=== PATIENT | female | born 1970 | race Hispanic/Latino ===

== ENCOUNTER 2016-11-08 04:16 | Emergency (ER) | payer OTHER ==
[2016-11-08 04:38] VITALS: BMI 25.8
[2016-11-08 04:50] VITALS: TEMP 98
--- NOTE | 2016-11-08 04:56 | ED PDOC ---
Arrival/HPI - General Chief Complaint: Alcohol Ingestion Time Seen by Provider: 11/08/16 04:18 Historian: Patient, EMS, Police EM Caveat: Intoxicated - History of Present Illness Narrative History of Present Illness (Text): 11/08/16 04:52 46 year old female presents to the emergency department by BLS with [place] [employer] for ETOH intoxication. Patient was found sitting in the middle of the road. Patient was brought in screaming violently and being uncooperative. HPI and ROS limited due to patient being intoxicated and uncooperative. Time/Duration: Other Symptom Onset: Gradual Symptom Course: Unchanged Activities at Onset: Light Context: Street Past Medical History - Provider Review Nursing Documentation Reviewed: Yes - Infectious Disease Hx of Infectious Diseases: None - Psychiatric Hx Substance Use: No Family/Social History - Physician Review Nursing Documentation Reviewed: Yes Family/Social History: No Known Family HX Smoking Status: Unknown If Ever Smoked Hx Alcohol Use: Yes Hx Substance Use: No Allergies/Home Meds Allergies/Adverse Reactions: Allergies Unobtainable Allergy (Verified 11/08/16 04:38) Home Medications: Home Meds Medication Instructions Recorded Confirmed Unobtainable 11/08/16 11/08/16 Review of Systems - Physician Review All systems were reviewed & negative as marked: Yes - Review of Systems Systems not reviewed;Unavailable: Intoxicated Physical Exam Vital Signs Reviewed: Yes Vital Signs Temp Pulse Resp BP Pulse Ox 11/08/16 13:35 71 H 106/60 98 11/08/16 11:39 70 16 102/56 L 99 11/08/16 09:36 72 16 95/55 L 99 11/08/16 07:00 80 16 102/52 L 100 11/08/16 04:41 98.0 F 80 16 108/58 L 97 Temperature: Afebrile Blood Pressure: Normal Pulse: Regular Respiratory Rate: Normal Appearance: Positive for: Well-Appearing, Non-Toxic, Comfortable Pain Distress: None - Systems Exam Head: Present: Atraumatic, Normocephalic Pupils: Present: PERRL Extroacular Muscles: Present: EOMI Conjunctiva: Present: Normal Mouth: Present: Moist Mucous Membranes Neck: Present: Normal Range of Motion Respiratory/Chest: Present: Clear to Auscultation, Good Air Exchange. No: Respiratory Distress, Accessory Muscle Use Cardiovascular: Present: Regular Rate and Rhythm, Normal S1, S2. No: Murmurs Abdomen: Present: Normal Bowel Sounds. No: Tenderness, Distention, Peritoneal Signs Back: Present: Normal Inspection Upper Extremity: Present: Normal Inspection. No: Cyanosis, Edema Lower Extremity: Present: Normal Inspection. No: Edema Neurological: Present: GCS=15, CN II-XII Intact, Speech Normal Skin: Present: Warm, Dry, Normal Color. No: Rashes Psychiatric: Present: Alert, Oriented x 3, Normal Insight, Normal Concentration Medical Decision Making ED Course and Treatment: 11/08/16 04:52 Impression: 46 year old female present for ETOH intoxication. Plan: -- Head CT -- Labs -- Ativan -- Haldol -- Urinalysis -- HCG Qualitative Urine -- Reassess and disposition Progress Notes: - Lab Interpretations Lab Results: 11/08/16 05:13 11/08/16 05:13 Lab Results 11/08/16 06:45: Alcohol, Quantitative 242 H 11/08/16 05:13: Sodium 139, Potassium 3.8, Chloride 106, Carbon Dioxide 19 L, Anion Gap 18, BUN 12, Creatinine 0.6, Est GFR ( Amer) > 60, Est GFR (Non- Af Amer) > 60, Random Glucose 79, Calcium 7.8 L, Total Bilirubin 0.6, AST 34, ALT 7, Alkaline Phosphatase 43, Total Protein 6.7, Albumin 4.1, Globulin 2.6, Albumin/Globulin Ratio 1.6, Lipase 1036 H 11/08/16 05:13: Urine Color Yellow, Urine Appearance Clear, Urine pH 6.0, Ur Specific [place] <= 1.005, Urine Protein Negative, Urine Glucose (UA) Negative, Urine Ketones Negative, Urine Blood Negative, Urine Nitrate Negative, Urine Bilirubin Negative, Urine Urobilinogen 0.2, Ur Leukocyte Esterase Negative, Urine HCG, Qual Negative 11/08/16 05:13: WBC 8.4, RBC 4.11, Hgb 12.3, Hct 36.4, MCV 88.6, MCH 29.9, MCHC 33.8, RDW 13.7, Plt Count 223, MPV 9.9, Gran % 56.5, Lymph % (Auto) 33.2, Bailey % (Auto) 8.6 H, Eos % (Auto) 1.1 L, Baso % (Auto) 0.6, Gran # 4.77, Lymph # 2.8 , Bailey # 0.7 H, Eos # 0.1, Baso # 0.05 I have reviewed the lab results: Yes - RAD Interpretation Radiology Orders: 11/08/16 04:44 HEAD W/O CONTRAST [CT] Stat - Medication Orders Current Medication Orders: Discontinued Medications Haloperidol Lactate (Haldol) 5 mg IM STAT STA PRN Reason: Protocol Stop: 11/08/16 04:43 Last Admin: 11/08/16 04:42 Dose: 5 mg IM Administration Charges Document 11/08/16 04:42 SC ([facility]08[facility]16 [id number] Injection Site MAR Injection Site Right Deltoid Charges for Administration # of IM Administrations 1 Lorazepam (Ativan) 2 mg IM ONCE ONE PRN Reason: Protocol Stop: 11/08/16 04:43 Last Admin: 11/08/16 04:42 Dose: 2 mg IM Administration Charges Document 11/08/16 04:42 SC (Rec: 11/08/16 04:54 [id number] Injection Site MAR Injection Site Right Deltoid Charges for Administration # of IM Administrations 1 Ondansetron HCl (Zofran Inj) 4 mg IVP STAT STA Stop: 11/08/16 04:42 Last Admin: 11/08/16 04:42 Dose: 4 mg IVP Administration Document 11/08/16 04:42 SC (Rec: 11/08/16 04:54 [id number] Charges for Administration # of IVP Administrations 1 - Scribe Statement The provider has reviewed the documentation as recorded by the Scribe Garrett Cuellar All medical record entries made by the Scriblonnie were at my direction and personally dictated by me. I have reviewed the chart and agree that the record accurately reflects my personal performance of the history, physical exam, medical decision making, and the department course for this patient. I have also personally directed, reviewed, and agree with the discharge instructions and disposition. Disposition/Present on Arrival - Present on Arrival Any Indicators Present on Arrival: No History of DVT/PE: No History of Uncontrolled Diabetes: No Urinary Catheter: No History of Decub. Ulcer: No History Surgical Site Infection Following: None - Disposition Have Diagnosis and Disposition been Completed?: Yes Diagnosis: Alcohol intoxication, Elevated lipase Disposition: HOME/ ROUTINE Disposition Time: 07:00 Condition: GOOD Discharge Instructions (ExitCare): Pancreatitis (ED), Alcohol Intoxication (ED) Additional Instructions: PLEASE RETURN TO THE EMERGENCY DEPARTMENT FOR NEW OR WORSENING SYMPTOMS. RETURN RIGHT AWAY IF YOU CANNOT FOLLOW UP WITH YOUR PRIMARY CARE DOCTOR, CLINIC, OR SPECIALIST IN 1-2 DAYS. Referrals: Nata Lees MD [Primary Care Provider] - Follow up with primary Salomón Almaraz MD [Staff Provider] - Follow up with primary Ronal Pena MD [Medical Doctor] - Follow up with primary Ryan Frias MD [Staff Provider] - Follow up with primary Forms: [employer] (Bulgarian)
[2016-11-08 06:09] LABS: BASO # 0.05 K/mm3 (0.0-2.0); BASO % 0.6 % (0.0-3.0); EOS # 0.1 (0.0-0.7); EOS % 1.1 % (1.5-5.0); GRAN # 4.77 (1.4-6.5); GRAN % 56.5 % (50.0-68.0); HEMATOCRIT 36.4 % (36.0-48.0); LYMPH # 2.8 (1.2-3.4); LYMPH % 33.2 % (22.0-35.0); MEAN CELL VOLUME 88.6 fl (80.0-105.0); MEAN CORPUSCULAR HEMOGLOBIN 29.9 pg (25.0-35.0); MEAN CORPUSCULAR HGB CONC 33.8 g/dl (31.0-37.0); MEAN PLATELET VOLUME 9.9 fl (7.0-11.0); MONO # 0.7 (0.1-0.6); MONO % 8.6 % (1.0-6.0); RED CELL DISTRIBUTION WIDTH 13.7 % (11.5-14.5); WHITE BLOOD COUNT 8.4 10^3/ul (4.5-11.0)
[2016-11-08 06:11] LABS: URINE BILIRUBIN NEGATIVE (NEGATIVE); URINE BLOOD NEGATIVE (NEGATIVE); URINE GLUCOSE (UA) NEGATIVE (NEGATIVE); URINE KETONE NEGATIVE (NEGATIVE); URINE LEUKOCYTE ESTERASE NEGATIVE Leu/uL (NEGATIVE); URINE PROTEIN NEGATIVE mg/dL (<30 mg/dL); URINE UROBILINOGEN 0.2 E.U./dL (<1 E.U./dL)
[2016-11-08 06:19] LABS: ALB/GLOB RATIO 1.6 (1.1-1.8); ALKALINE PHOSPHATASE 43 U/L (38-126); ALT/SGPT 7 U/L (7-56); AST/SGOT 34 U/L (14-36); BILIRUBIN,TOTAL 0.6 mg/dL (0.2-1.3); BLOOD UREA NITROGEN 12 mg/dL (7-21); CALCIUM 7.8 mg/dL (8.4-10.5); CARBON DIOXIDE 19 mmol/L (21-33); CHLORIDE 106 mmol/L (98-107); GFR AFRICAN-AMERICAN > 60; GLUCOSE,RANDOM 79 mg/dL (70-110); LIPASE 1036 U/L (23-300); POTASSIUM 3.8 mmol/L (3.6-5.0); SODIUM 139 mmol/L (132-148); TOTAL PROTEIN 6.7 g/dL (5.8-8.3)
[2016-11-08 06:23] LABS: URINE APPEARANCE CLEAR (CLEAR); URINE COLOR YELLOW (YELLOW)
--- NOTE | 2016-11-08 06:50 | CT ---
EXAM: CT Head Without Intravenous Contrast EXAM DATE/TIME: 11/08/2016 4:44 AM CLINICAL HISTORY: 46 years old, female; Pain; Headache; Additional info: R/O ich TECHNIQUE: Axial computed tomography images of the head/brain without intravenous contrast. All CT scans at this facility use one or more dose reduction techniques, viz.: automated exposure control; ma/kV adjustment per patient size (including targeted exams where dose is matched to indication; i.e. head); or iterative reconstruction technique. COMPARISON: No relevant prior studies available. FINDINGS: There is no hemorrhage. No edema, midline shift or mass effect is noted. There is normal izaguirre white differentiation. Ventricles, cisterns and sulci are normal for age. Calvarium is unremarkable. Included paranasal sinuses and mastoids are clear. IMPRESSION: No acute cerebral hemorrhage or edema.
--- NOTE | 2016-11-08 07:20 | ED PDOC ---
Physical Exam Vital Signs Temp Pulse Resp BP Pulse Ox 11/08/16 09:36 72 16 95/55 L 99 11/08/16 07:00 80 16 102/52 L 100 11/08/16 04:41 98.0 F 80 16 108/58 L 97 Medical Decision Making ED Course and Treatment: 11/08/16 07:00 Patient signed out to me by Dr. Dale. Patient was combative and intoxicated. Pending sobriety. On reevaluation, patient is resting comfortably. Abdomen is soft, non-tender, and non-distended. 11/08/16 11:28 Pt has been closely monitored throughout the stay in the ED. Currently pt is ANOx3 to person, place, and time. Has good insight and judgment. Denies suicidal or homicidal ideations. Pt has steady gait, ambulates without difficulty, not slurring speech. Pt able to tolerate PO without any difficulty. Patient denies any complaints at this time. Patient is not tremulous, not tachycardic, no signs or symptoms of alcohol withdrawal. pt informed of elevated lipase levels again, pt states she has no abd pain and her abd is soft/nt/nd. Patient ate a full breakfast without difficulty. Pt informed that it is necessary for her to f/u with a GI specialist and reasons given. pt verbalized understanding. Pt states she understands to return to the ER right away for new or worsening symptoms or for inability to f/u with PMD or specialist as instructed. Patient states that she fully agrees with and understands discharge instructions. States that she agrees with the plan and disposition. Verbalized and repeated discharge instructions and plan. I have given the patient opportunity to ask any additional questions. - Lab Interpretations Lab Results: 11/08/16 05:13 11/08/16 05:13 Lab Results 11/08/16 06:45: Alcohol, Quantitative 242 H 11/08/16 05:13: Sodium 139, Potassium 3.8, Chloride 106, Carbon Dioxide 19 L, Anion Gap 18, BUN 12, Creatinine 0.6, Est GFR ( Amer) > 60, Est GFR (Non- Af Amer) > 60, Random Glucose 79, Calcium 7.8 L, Total Bilirubin 0.6, AST 34, ALT 7, Alkaline Phosphatase 43, Total Protein 6.7, Albumin 4.1, Globulin 2.6, Albumin/Globulin Ratio 1.6, Lipase 1036 H 11/08/16 05:13: Urine Color Yellow, Urine Appearance Clear, Urine pH 6.0, Ur Specific [place] <= 1.005, Urine Protein Negative, Urine Glucose (UA) Negative, Urine Ketones Negative, Urine Blood Negative, Urine Nitrate Negative, Urine Bilirubin Negative, Urine Urobilinogen 0.2, Ur Leukocyte Esterase Negative, Urine HCG, Qual Negative 11/08/16 05:13: WBC 8.4, RBC 4.11, Hgb 12.3, Hct 36.4, MCV 88.6, MCH 29.9, MCHC 33.8, RDW 13.7, Plt Count 223, MPV 9.9, Gran % 56.5, Lymph % (Auto) 33.2, Catron % (Auto) 8.6 H, Eos % (Auto) 1.1 L, Baso % (Auto) 0.6, Gran # 4.77, Lymph # 2.8 , Catron # 0.7 H, Eos # 0.1, Baso # 0.05 - RAD Interpretation Radiology Orders: 11/08/16 04:44 HEAD W/O CONTRAST [CT] Stat - Medication Orders Current Medication Orders: Discontinued Medications Haloperidol Lactate (Haldol) 5 mg IM STAT STA PRN Reason: Protocol Stop: 11/08/16 04:43 Last Admin: 11/08/16 04:42 Dose: 5 mg IM Administration Charges Document 11/08/16 04:42 SC (Rec: 11/08/16 04:54 [id number] Injection Site MAR Injection Site Right Deltoid Charges for Administration # of IM Administrations 1 Lorazepam (Ativan) 2 mg IM ONCE ONE PRN Reason: Protocol Stop: 11/08/16 04:43 Last Admin: 11/08/16 04:42 Dose: 2 mg IM Administration Charges Document 11/08/16 04:42 SC (Rec: 11/08/16 04:54 [id number] Injection Site MAR Injection Site Right Deltoid Charges for Administration # of IM Administrations 1 Ondansetron HCl (Zofran Inj) 4 mg IVP STAT STA Stop: 11/08/16 04:42 Last Admin: 11/08/16 04:42 Dose: 4 mg IVP Administration Document 11/08/16 04:42 SC (Rec: 11/08/16 04:54 [id number] Charges for Administration # of IVP Administrations 1 - Scribe Statement The provider has reviewed the documentation as recorded by the Mansoor Aguilar Provider Scribe Attestation: All medical record entries made by the Scribe were at my direction and personally dictated by me. I have reviewed the chart and agree that the record accurately reflects my personal performance of the history, physical exam, medical decision making, and the department course for this patient. I have also personally directed, reviewed, and agree with the discharge instructions and disposition. Disposition/Present on Arrival - Present on Arrival Any Indicators Present on Arrival: No History of DVT/PE: No History of Uncontrolled Diabetes: No Urinary Catheter: No History of Decub. Ulcer: No History Surgical Site Infection Following: None - Disposition Have Diagnosis and Disposition been Completed?: Yes Diagnosis: Alcohol intoxication, Elevated lipase Disposition: HOME/ ROUTINE Disposition Time: 11:31 Patient Plan: Discharge Condition: GOOD Discharge Instructions (ExitCare): Alcohol Intoxication (ED), Pancreatitis (ED) Additional Instructions: PLEASE RETURN TO THE EMERGENCY DEPARTMENT FOR NEW OR WORSENING SYMPTOMS. RETURN RIGHT AWAY IF YOU CANNOT FOLLOW UP WITH YOUR PRIMARY CARE DOCTOR, CLINIC, OR SPECIALIST IN 1-2 DAYS. Referrals: Nata Lees MD [Primary Care Provider] - Follow up with primary Salomón Almaraz MD [Staff Provider] - Follow up with primary Ronal Pena MD [Medical Doctor] - Follow up with primary Ryan Frias MD [Staff Provider] - Follow up with primary Forms: [employer] (Hebrew)
[2016-11-08 11:40] VITALS: PULSE 70
[2016-11-08 13:36] VITALS: BP 106/60; RESP 71; O2SAT 98
== END 2016-11-08 13:36 | disposition home or self-care (01) ==
LOC: ED 04:16
DX: F10.120 Alcohol abuse with intoxication, uncomplicated (principal); Y90.8 Blood alcohol level of 240 mg/100 ml or more; R74.8 Abnormal levels of other serum enzymes
CPT/HCPCS: 70450; 80053; 80320; 81003; 83690; 84703; 85025; 96372; 96374; 99285; J1630; J2060; J2405